=== PATIENT | male | born 1975 | race Caucasian/White ===

== ENCOUNTER 2016-12-12 16:54 | Emergency (ER) | payer OTHER ==
[~2016-12-12] VITALS: Ht 190.5 cm; Wt 104.3 kg
--- NOTE | 2016-12-12 17:19 | ED Hip Pain/Injury ---
General Chief Complaint: Hip/Pelvic Problems Stated Complaint: R HIP PAIN/LEG WEAKNESS Nursing Triage Note: AMBULATED TO ROOM 06 ET STATES HE THINK HE TORE A LIGAMENT IN HIS RIGHT HIP. STATES HE WAS PUTTING ON HIS BOOTS LAST TUESDAY AND IMMEDIATLY STARTED HAVING PAIN AND NOW IT RADIATES TO THE LEFT HIP. Source: patient Exam Limitations: no limitations History of Present Illness Time seen by provider: 17:19 Initial Comments 41-year-old male patient presents to the emergency department for complaints of low back pain radiating down the right buttock and right leg. States symptoms began when he was trying to put on his boots last Tuesday. States this current worse throughout the week. Denies numbness, weakness, bowel incontinence, bladder incontinence, or numbness of the genital area. Timing/Duration: week, getting worse Location: other (low back that radiates down the rt buttock/RLE.) Method of Injury: other (bent over to put shoes on ) Modifying Factors: Improves With Immobilization, Worse With Movement Allergies and Home Medications Allergies Coded Allergies: No Known Drug Allergies (Unverified , 12/12/16) Home Medications Cyclobenzaprine HCl 10 Mg Tablet, 10 MG PO Q8H PRN for SPASMS, #14 Ref 0 Prescribed by: SHAHEED WILLIAM on 12/12/161744 Prednisone 20 Mg Tab, 40 MG PO DAILY, #10 Ref 0 Prescribed by: SHAHEED WILLIAM on 12/12/161744 Constitutional: no symptoms reported Respiratory: no symptoms reported Cardiovascular: no symptoms reported Gastrointestinal: no symptoms reported Genitourinary: No decreased output, No dysuria, No frequency, No hematuria, No pain Musculoskeletal: see HPI, back pain, joint pain, muscle pain Skin: no symptoms reported Psychiatric/Neurological: Denies Headache, Denies Numbness, Denies Paresthesia , Denies Tingling, Denies Weakness All Other Systems Reviewed Negative Unless Noted: Yes (Negative excepted noted.) Past Uobrbjp-Ztzvok-Alulfl Hx Patient Social History Alcohol Use: Denies Use Recreational Drug Use: No Smoking Status: Current Everyday Smoker Recent Foreign Travel: No Contact w/Someone Who Travel: No Recent Infectious Disease Expo: No Recent Hopitalizations: No Surgeries HX Surgeries: No Respiratory Hx Respiratory Disorders: No Cardiovascular Hx Cardiac Disorders: No Neurological Hx Neurological Disorders: No Genitourinary Hx Genitourinary Disorders: No Gastrointestinal Hx Gastrointestinal Disorders: No Musculoskeletal Hx Musculoskeletal Disorders: No Endocrine Hx Endocrine Disorders: No HEENT HX ENT Disorders: No Reviewed Nursing Assessment Reviewed/Agree w Nursing PMH: Yes Family Medical History Significant Family History: No Pertinent Family Hx Physical Exam Vital Signs Vital Sign - Last 12Hours 12/12/16 17:06 Temp 98.0 Pulse 111 Resp 18 B/P (MAP) 193/116 Pulse Ox 96 Capillary Refill : Less Than 3 Seconds General Appearance: No Apparent Distress, WD/WN HEENT: PERRL/EOMI, Pharynx Normal Neck: Full Range of Motion, Normal Inspection, Non Tender, Supple Cardiovascular: Regular Rate, Rhythm, No Edema, No Murmur, Normal Peripheral Pulses Respiratory: Lungs Clear, Normal Breath Sounds, No Respiratory Distress Peripheral Pulses: 2+ Dorsalis Pedis (R), 2+ Left Dors-Pedis (L), 2+ Radial Pulses (R), 2+ Radial Pulses (L) Gastrointestinal: Normal Bowel Sounds, Non Tender, Soft, No Distended Back: Normal Inspection, No Vertebral Tenderness, No Decreased Range of Motion , Muscle Spasm (Rt low paraspinous muscles.) Extremity: Normal Capillary Refill, Normal Inspection, Normal Range of Motion, No Calf Tenderness, No Pedal Edema, Other (very mild soft tissue tenderness noted on the right buttock and posteriolateral rt thigh.) Neurologic/Psychiatric: Alert, Oriented x3, No Motor/Sensory Deficits, Normal Mood/Affect Skin: Normal Color, Warm/Dry Progress/Results/Core Measures Results/Orders My Orders Orders - SHAHEED WILLIAM (12/12/16 17:47) Vital Signs/I&O Vital Sign - Last 12Hours 12/12/16 17:06 Temp 98.0 Pulse 111 Resp 18 B/P (MAP) 193/116 Pulse Ox 96 Blood Pressure Mean: 141 Departure Communication Progress Notes patient seen and evaluated. patient refuses diagnostic studies and laboratory testing. denies need for pain medication. Patient states "I only came out here to get crutches, an ice pack, and a back brace or something." I discussed all risks, benefits, possible complications associated with not performing diagnostic studies and laboratory studies. All questions were answered at the time of visit. Patient voices understanding and continues to refuse diagnostic and laboratory testing. Patient states his BP is usually "normal" and states it is only up today due to the pain. Patient advised to follow-up with the PCP of his choice for establishing care and for recheck of his BP. All return precautions were discussed with the patient as described in the discharge instructions of this report. Patient voices understanding and agrees with the treatment plan. Dr. Jimenez notified of patient's refusal for laboratory and diagnostic testing. Impression Impression: Primary Impression: Low back pain with sciatica Qualified Codes: M54.41 - Lumbago with sciatica, right side Additional Impression: Elevated blood pressure reading Disposition: HOME, SELF-CARE Condition: Improved Departure-Patient Inst. Decision time for Depature: 17:43 Referrals: NO,LOCAL PHYSICIAN (PCP/Family) Primary Care Physician Patient Instructions: Low Back Pain (DC), Sciatica (DC) Add. Discharge Instructions: All discharge instructions reviewed with patient and/or family. Voiced understanding. Medications as instructed. Ice pack for 20 minute intervals as needed for pain. Ibuprofen 800 mg by mouth every 8 hours as needed for pain. Tylenol extra strength [id number] as directed for pain. No heavy lifting , pushing, pulling, twisting, bending, climbing 5-7 days, increase activity slowly as tolerated. Follow-up with your family practitioner of choice for establishing care and for recheck of your blood pressure on Tuesday. Return to the emergency department for worsened pain, numbness, weakness, bowel incontinence, bladder incontinence, numbness of the genitals, or any other concerns. Scripts Cyclobenzaprine HCl (Cyclobenzaprine HCl) 10 Mg Tablet 10 MG PO Q8H Y for SPASMS, #14 TAB 0 Refills Prov: SHAHEED WILLIAM 12/12/16 Prednisone (Prednisone) 20 Mg Tab 40 MG PO DAILY, #10 TAB 0 Refills Prov: SHAHEED WILLIAM 12/12/16 Work/School Note: [employer] SHAHEED WILLIAM December 12, 2016 17:19
[2016-12-12] MEDS ORDERED: PRD20T PO (17:45)
[2016-12-12] MEDS ORDERED: CYCL10TA9 PO (17:45)
[2016-12-12 18:02] VITALS: BP 190/125
== END 2016-12-12 18:02 | disposition home or self-care (01) ==
LOC: ER 16:57
DX: M54.41 Lumbago with sciatica, right side (principal); R03.0 Elevated blood-pressure reading, without diagnosis of hypertension; F17.210 Nicotine dependence, cigarettes, uncomplicated
CPT/HCPCS: 99282

== ENCOUNTER 2017-05-30 16:45 | Emergency (ER) | payer OTHER ==
[~2017-05-30] VITALS: Ht 188 cm; Wt 106.6 kg
[~2017-05-30 16:45] MED LIST: CYCL10TA9 PO; PRD20T PO
[2017-05-30 17:17] VITALS: BP 204/119
[2017-05-30 17:43] LABS: BASOPHILS % (AUTO) 0 % (0-10); EOSINOPHILS # (AUTO) 0.4 10^3/uL (0.0-0.3); EOSINOPHILS % (AUTO) 4 % (0-10); LYMPHOCYTES # (AUTO) 2.8 X 10^3 (1.0-4.0); LYMPHOCYTES % (AUTO) 30 % (12-44); MEAN CORPUSCULAR HEMOGLOBIN 31 PG (25-34); MEAN CORPUSCULAR HGB CONC 36 G/DL (32-36); MEAN CORPUSCULAR VOLUME 86 FL (80-99); MEAN PLATELET VOLUME 9.5 FL (7.4-10.4); MONOCYTES # (AUTO) 0.6 X 10^3 (0.0-1.0); MONOCYTES % (AUTO) 7 % (0-12); NEUTROPHILS # (AUTO) 5.5 X 10^3 (1.8-7.8); NEUTROPHILS % (AUTO) 59 % (42-75); PLATELET COUNT 195 10^3/uL (130-400); RED BLOOD COUNT 5.24 10^6/uL (4.35-5.85); RED CELL DISTRIBUTION WIDTH 12.4 % (10.0-14.5); WHITE BLOOD COUNT 9.2 10^3/uL (4.3-11.0)
--- NOTE | 2017-05-30 17:50 | ED Psychosocial ---
General Chief Complaint: Cardiac/General Problems Stated Complaint: BLURRY VISION,HEADACHE,LT ARM NUMBNESS Nursing Triage Note: pt presents to ED with complaints of RAMIREZ, blurred vision, Lt arm numbness. Pt also reports he thinks he is being sedated at night and people are messing with him. Pt reports some one may have put snake venom in his coke can. Pt also reports he thinks it is possible that he is getting an electroshock at work through a defibulator. Source: patient Exam Limitations: no limitations History of Present Illness Time seen by provider: 17:45 Initial Comments 41-year-old male patient presents to the emergency department with complaints of headache, blurred vision, and left arm numbness beginning last Tuesday area patient states today the headache and blurred vision are improved. Patient is concerned that he is being sedated at nighttime and that someone is putting snake venom in his code can. Patient states he "passed out" in his recliner on Tuesday and when he awoke he noticed his straw had raised up in the can and was swirling. Patient then felt very suspicious that someone was messing with him. Patient states his sister was born with a paralyzed arm and would not be surprised if she was messing with him. Also states while at work there are defibrillators on the mari and he thinks someone is causing the defibrillators to shock him. He feels a "pulsing" in the left arm from the defibrillators. On Tuesday he was having difficulty opening zippers and raising the left arm above shoulder height. Patient denies suicidal or homicidal ideation. Denies personal history of suicide attempts. Patient does report a history of migraines. Only drinks caffeinated pop. Denies changes in appetite. Patient was seen by this examiner in November 2016 for back pain and was noted at that time to have a BP of 193/116 mmHg. Denies seeing a PCP for the elevated BP. Patient denies a h/o psychiatric diagnosis. He does report while he lived in [place] (approximately 6 years ago) he also thought someone was putting staff and his coke cans. Patient does have a history of drug abuse, but states he has not used for a long time. Timing/Duration: intermittent, other (onset 05/25/2017) Associated Symptoms: anxiety, impaired concentration, insomnia, other (see HPI. ) Allergies and Home Medications Allergies Coded Allergies: No Known Drug Allergies (Unverified , 12/12/16) Home Medications No Active Prescriptions or Reported Meds Constitutional: No chills, No diaphoresis, No dizziness, No fever, malaise, weakness (generalized weakness), other (fatigue) EENTM: blurred vision, dental problems (patient states he has "chronic bad teeth" and thinks may be contributing to the headaches and blurred vision.), other (dry mouth.), No ear discharge, No hearing loss, No ear pain, No double vision, No hoarseness, No mouth pain, No nose pain, No throat pain, No throat swelling Respiratory: No cough, No short of breath Cardiovascular: No chest pain, No edema, No palpitations, No syncope Gastrointestinal: No abdominal pain, No constipation, No diarrhea, No nausea, No vomiting Genitourinary: no symptoms reported Musculoskeletal: see HPI Skin: other ("bug bite" under the left breast that has been intermittent for approx 2 months.) Psychiatric/Neurological: See HPI, Anxiety, Headache, Numbness (left arm), Denies Seizure, Tingling (left arm), Weakness (left arm weakness) All Other Systems Reviewed Negative Unless Noted: Yes (Negative excepted noted.) Past Mehladq-Inviit-Cskmyk Hx Patient Social History Alcohol Use: Occasionally Uses Smoking Status: Current Everyday Smoker Type Used: Cigarettes Recent Foreign Travel: No Contact w/Someone Who Travel: No Recent Infectious Disease Expo: No Recent Hopitalizations: No Physical Abuse: No Sexual Abuse: No Mistreated: No Fear: No Surgeries History of Surgeries: No Respiratory History of Respiratory Disorde: No Cardiovascular History of Cardiac Disorders: Yes Cardiac Disorders: Hypertension Neurological History of Neurological Disord: No Genitourinary History of Genitourinary Disor: No Gastrointestinal History of Gastrointestinal Di: No Musculoskeletal History of Musculoskeletal Dis: No Endocrine History of Endocrine Disorders: No HEENT History of HEENT Disorders: No Cancer History of Cancer: No Psychosocial History of Psychiatric Problem: Yes (psych hx) Suicide Risk Score: 0 Integumentary History of Skin or Integumenta: No Blood Transfusions History of Blood Disorders: No Adverse Reaction to a Blood Tr: No Reviewed Nursing Assessment Reviewed/Agree w Nursing PMH: Yes Family Medical History Significant Family History: No Pertinent Family Hx Physical Exam Vital Signs Vital Sign - Last 12Hours 05/30/17 17:17 Temp 98.5 Pulse 119 Resp 20 B/P (MAP) 204/119 Pulse Ox 99 Capillary Refill : Less Than 3 Seconds Progress/Results/Core Measures Results/Orders Lab Results Laboratory Tests Test 05/30/17 17:35 05/30/17 21:01 Range/Units White Blood Count 9.2 4.3-11.0 10^3/uL Red Blood Count 5.24 4.35-5.85 10^6/uL Hemoglobin 16.3 13.3-17.7 G/DL Hematocrit 45 40-54 % Mean Corpuscular Volume 86 80-99 FL Mean Corpuscular Hemoglobin 31 25-34 PG Mean Corpuscular Hemoglobin Concent 36 32-36 G/DL Red Cell Distribution Width 12.4 10.0-14.5 % Platelet Count 195 130-400 10^3/uL Mean Platelet Volume 9.5 7.4-10.4 FL Neutrophils (%) (Auto) 59 42-75 % Lymphocytes (%) (Auto) 30 12-44 % Monocytes (%) (Auto) 7 0-12 % Eosinophils (%) (Auto) 4 0-10 % Basophils (%) (Auto) 0 0-10 % Neutrophils # (Auto) 5.5 1.8-7.8 X 10^3 Lymphocytes # (Auto) 2.8 1.0-4.0 X 10^3 Monocytes # (Auto) 0.6 0.0-1.0 X 10^3 Eosinophils # (Auto) 0.4 H 0.0-0.3 10^3/uL Basophils # (Auto) 0.0 0.0-0.1 10^3/uL Sodium Level 135 135-145 MMOL/L Potassium Level 3.8 3.6-5.0 MMOL/L Chloride Level 101 98-107 MMOL/L Carbon Dioxide Level 22 21-32 MMOL/L Anion Gap 12 5-14 MMOL/L Blood Urea Nitrogen 10 7-18 MG/DL Creatinine 0.99 0.60-1.30 MG/DL Estimat Glomerular Filtration Rate > 60 BUN/Creatinine Ratio 10 Glucose Level 190 H 70-105 MG/DL Calcium Level 9.7 8.5-10.1 MG/DL Magnesium Level 1.8 1.8-2.4 MG/DL Total Bilirubin 0.5 0.1-1.0 MG/DL Aspartate Amino Transf (AST/SGOT) 25 5-34 U/L Alanine Aminotransferase (ALT/SGPT) 37 0-55 U/L Alkaline Phosphatase 119 40-136 U/L Total Creatine Kinase 204 H 30-200 U/L Creatine Kinase MB 3.7 <6.6 NG/ML Troponin I < 0.30 <0.30 NG/ML Total Protein 8.0 6.4-8.2 GM/DL Albumin 4.3 3.2-4.5 GM/DL TSH Tracy Testing 1.83 0.35-4.94 UIU/ML Salicylates Level < 5.0 L 5.0-20.0 MG/DL Acetaminophen Level < 10 L 10-30 UG/ML Serum Alcohol < 10 <10 MG/DL Urine Color YELLOW Urine Clarity CLEAR Urine pH 5 5-9 Urine Specific [place] 1.020 1.016-1.022 Urine Protein NEGATIVE NEGATIVE Urine Glucose (UA) 1+ H NEGATIVE Urine Ketones NEGATIVE NEGATIVE Urine Nitrite NEGATIVE NEGATIVE Urine Bilirubin NEGATIVE NEGATIVE Urine Urobilinogen NORMAL NORMAL MG/DL Urine Leukocyte Esterase NEGATIVE NEGATIVE Urine RBC (Auto) NEGATIVE NEGATIVE Urine RBC NONE /HPF Urine WBC RARE /HPF Urine Squamous Epithelial Cells RARE /HPF Urine Crystals NONE /LPF Urine Bacteria NONE /HPF Urine Casts NONE /LPF Urine Mucus TRACE /LPF Urine Culture Indicated NO Urine Opiates Screen NEGATIVE NEGATIVE Urine Oxycodone Screen NEGATIVE NEGATIVE Urine Methadone Screen NEGATIVE NEGATIVE Urine Propoxyphene Screen NEGATIVE NEGATIVE Urine Barbiturates Screen NEGATIVE NEGATIVE Ur Tricyclic Antidepressants Screen NEGATIVE NEGATIVE Urine Phencyclidine Screen NEGATIVE NEGATIVE Urine Amphetamines Screen NEGATIVE NEGATIVE Urine Methamphetamines Screen NEGATIVE NEGATIVE Urine Benzodiazepines Screen NEGATIVE NEGATIVE Urine Cocaine Screen NEGATIVE NEGATIVE Urine Cannabinoids Screen NEGATIVE NEGATIVE My Orders Orders - SHAHEED WILLIAM Saline Lock/Iv-Start (05/30/17 17:30) Ekg Tracing (05/30/17 17:30) Cbc With Automated Diff (05/30/17 17:30) Comprehensive Metabolic Panel (05/30/17 17:30) Creatine Kinase (05/30/17 17:30) Creatine Kinase Mb (05/30/17 17:30) Drug Screen Stat (Urine) (05/30/17 17:30) Magnesium (05/30/17 17:30) Thyroid Analyzer (05/30/17 17:30) Troponin I (05/30/17 17:30) Ua Culture If Indicated (05/30/17 17:30) Alcohol (05/30/17 17:33) Acetaminophen (05/30/17 17:33) Salicylate (05/30/17 17:33) Monitor-Rhythm Ecg Trace Only (05/30/17 17:33) Ct Head Wo (05/30/17 18:03) Ns Iv 1000 Ml (Sodium Chloride 0.9%) (05/30/17 18:28) Medications Given in ED Current Medications Medications Dose Ordered Sig/Jimmy Route Start Time Stop Time Status Last Admin Dose Admin Sodium Chloride 1,000 ml @ 0 mls/hr Q0M ONCE IV 05/30/17 18:28 05/30/17 18:29 DC 05/30/17 18:55 0 MLS/HR Vital Signs/I&O Vital Sign - Last 12Hours 05/30/17 17:17 Temp 98.5 Pulse 119 Resp 20 B/P (MAP) 204/119 Pulse Ox 99 Blood Pressure Mean: 147 ECG Initial ECG Impression Date: May 30, 2017 Initial ECG Impression Time: 17:50 Initial ECG Rate: 95 Initial ECG Rhythm: Normal Sinus Initial ECG Intervals: Normal Initial ECG Impression: Normal Initial ECG Comparisson: No Previous ECG Available Comment sinus rhythm. no STEMI or arrhythmia. ECG reviewed with Dr. Jimenez. Diagnostic Imaging Diagonstic Imaging: CT Plain Films/CT/US/NM/MRI: head Comments CT HEAD WO PROCEDURE: CT head without contrast. TECHNIQUE: Multiple contiguous axial images were obtained through the brain without the use of intravenous contrast. INDICATION: Blurred vision and headache. CORRELATION STUDY: None. FINDINGS: There is very slight asymmetry of the right lateral ventricle, slightly larger than the left, likely normal variation. No midline shift or mass effect. Sulci pattern relatively unremarkable. There is very slight asymmetric low density about the right posterosuperior hemisphere. This likely reflects a prominent central fissure. Edema would be considered less likely but not excluded. Otherwise, brain parenchyma appearing unremarkable. No intracranial hemorrhage. Basilar cisterns are maintained. No hyperdense MCA sign. Visualized paranasal sinuses and mastoid air cells are relatively clear with the mastoid air cells somewhat hypoplastic. IMPRESSION: 1. Very questionable low density about the right superior cerebral hemisphere likely reflective of volume averaging through prominent sulci. Edema considered less likely. However, given symptoms, if further assessment is desired, MRI would be recommended. Dictated on workstation # [id number] Reviewed: Reviewed by Me (radiology report reviewed by me) Departure Communication (Admissions) Progress Notes 1947 BP 165/99; P 104; SaO2 98% on RA. Patient reports he is feeling less anxious after talking about everything. Patient states he was seen in November by Dr. Graham. Tried to make an appointment with her today, but was told to come to the ED for work-up. Impression Impression: Primary Impression: Headache Additional Impression: Hypertension Disposition: HOME, SELF-CARE Condition: Improved Departure-Patient Inst. Referrals: WU GRAHAM MD NO,LOCAL PHYSICIAN (PCP) Primary Care Physician Patient Instructions: Cluster Headache (DC), High Blood Pressure (DC) Add. Discharge Instructions: All discharge instructions reviewed with patient and/or family. Voiced understanding. Tylenol extra strength [id number] as directed for headache or pain. Ibuprofen 800 mg by mouth every 8 hours as needed for pain or headache. Drink plenty of fluids. Rest. Monitor blood pressures 1-2 times daily. Record all readings take the list with you to the follow-up appointment with Dr. Graham. Follow-up with Dr. Graham in the next 1-2 days for recheck and for scheduling outpatient MRI of the brain. Call tomorrow morning for appointment time. Return immediately to the emergency department for worsened pain, dizziness, changes in vision, slurred speech, weakness, numbness, fever, shortness of air, chest pain, bowel incontinence, bladder incontinence, hallucinations, delusions, thoughts of harming yourself, thoughts of harming others, decreased urination, or any other concerns. Scripts No Active Prescriptions or Reported Meds SHAHEED WILLIAM May 30, 2017 17:50
[2017-05-30 18:05] LABS: ALANINE AMINOTRANSFERASE 37 U/L (0-55); ALBUMIN 4.3 GM/DL (3.2-4.5); ALCOHOL < 10 MG/DL (<10); ANION GAP 12 MMOL/L (5-14); ASPARTATE AMINO TRANSFERASE 25 U/L (5-34); BILIRUBIN,TOTAL 0.5 MG/DL (0.1-1.0); BLOOD UREA NITROGEN 10 MG/DL (7-18); BUN/CREATININE RATIO 10; CALCIUM 9.7 MG/DL (8.5-10.1); CARBON DIOXIDE 22 MMOL/L (21-32); CHLORIDE 101 MMOL/L (98-107); CREATINE KINASE 204 U/L (30-200); CREATININE SERUM 0.99 MG/DL (0.60-1.30); GFR ESTIMATED > 60; GLUCOSE 190 MG/DL (70-105); MAGNESIUM 1.8 MG/DL (1.8-2.4); POTASSIUM 3.8 MMOL/L (3.6-5.0); SALICYLATE < 5.0 MG/DL (5.0-20.0); SODIUM 135 MMOL/L (135-145)
[2017-05-30 18:06] LABS: ACETAMINOPHEN < 10 UG/ML (10-30)
[2017-05-30 18:24] LABS: TROPONIN I < 0.30 NG/ML (<0.30)
[2017-05-30] MEDS ORDERED: NS IV 1000 ML 1,000 ML IV ONE (18:28)
--- NOTE | 2017-05-30 18:33 | Diagnostic Imaging Report ---
PROCEDURE: CT head without contrast. TECHNIQUE: Multiple contiguous axial images were obtained through the brain without the use of intravenous contrast. INDICATION: Blurred vision and headache. CORRELATION STUDY: None. FINDINGS: There is very slight asymmetry of the right lateral ventricle, slightly larger than the left, likely normal variation. No midline shift or mass effect. Sulci pattern relatively unremarkable. There is very slight asymmetric low density about the right posterosuperior hemisphere. This likely reflects a prominent central fissure. Edema would be considered less likely but not excluded. Otherwise, brain parenchyma appearing unremarkable. No intracranial hemorrhage. Basilar cisterns are maintained. No hyperdense MCA sign. Visualized paranasal sinuses and mastoid air cells are relatively clear with the mastoid air cells somewhat hypoplastic. IMPRESSION: 1. Very questionable low density about the right superior cerebral hemisphere likely reflective of volume averaging through prominent sulci. Edema considered less likely. However, given symptoms, if further assessment is desired, MRI would be recommended. Dictated by: Dictated on workstation # [id number]
[2017-05-30 21:09] LABS: BILIRUBIN,URINE NEGATIVE (NEGATIVE); KETONES,URINE NEGATIVE (NEGATIVE); LEUKOCYTE ESTERASE ,URINE NEGATIVE (NEGATIVE); NITRITE,URINE NEGATIVE (NEGATIVE); PH,URINE 5 (5-9); PROTEIN,URINE NEGATIVE (NEGATIVE); UROBILINOGEN,URINE NORMAL (NORMAL)
[2017-05-30 21:20] LABS: SQUAMOUS EPITHELIAL CELL,UR RARE /HPF; WBC,URINE RARE /HPF
[2017-05-30] MEDS ORDERED: ACETAMINOPHEN 500 MG TAB (TYLENOL) PO ONE (22:30)
== END 2017-05-30 22:22 | disposition left against medical advice (07) ==
LOC: EDUNIT# 16:45 → ER 16:47
DX: R51 Headache (principal); I10 Essential (primary) hypertension; F17.210 Nicotine dependence, cigarettes, uncomplicated
CPT/HCPCS: 36415; 70450; 80053; 80306; 80320; 80329; 81000; 82550; 82553; 83735; 84443; 84484; 85025; 93005; 93041

== ENCOUNTER 2017-05-31 20:24 | Emergency (ER) | payer OTHER ==
[~2017-05-31] VITALS: Ht 188 cm; Wt 108.9 kg
--- NOTE | 2017-05-31 20:34 | ED General ---
General Chief Complaint: General Problems/Pain Stated Complaint: SEIZURES Source of Information: Patient Exam Limitations: No Limitations History of Present Illness Time Seen by Provider: 20:31 Initial Comments To ER per EMS from home with reports of bilateral leg cramps. He was here yesterday for left arm numbness and a headache. He had a CT of the head done without contrast. He also had extensive lab work done yesterday in the emergency room. Today, EMS was called to his house twice. Earlier today for cramping in the right calf and foot. He also had some numbness of the right calf and foot. He initially refused transport. EMS was called back to his house this evening for left sided leg cramping. His symptoms have completely resolved at this time though he does have some persistent left arm numbness began 05/28/17. He states this has improved but from an objective standpoint it is still quite apparent. He denies fevers or chills. He denies back pain. He denies loss of bowel or bladder control. Denies saddle anesthesia. Reports seizure like activity at home with "whole body shaking". Timing/Duration: 1-2 Days Severity: Moderate Allergies and Home Medications Allergies Coded Allergies: No Known Drug Allergies (Unverified , 12/12/16) Home Medications No Active Prescriptions or Reported Meds Constitutional: see HPI EENTM: see HPI Respiratory: no symptoms reported Cardiovascular: no symptoms reported Genitourinary: no symptoms reported Musculoskeletal: no symptoms reported Skin: no symptoms reported Psychiatric/Neurological: See HPI, Paresthesia Hematologic/Lymphatic: No Symptoms Reported Past Madxgjs-Nhjjrb-Rnadjf Hx Patient Social History Type Used: Cigarettes Recent Hopitalizations: No Surgeries History of Surgeries: No Respiratory History of Respiratory Disorde: No Cardiovascular History of Cardiac Disorders: Yes Cardiac Disorders: Hypertension Neurological History of Neurological Disord: No Genitourinary History of Genitourinary Disor: No Gastrointestinal History of Gastrointestinal Di: No Musculoskeletal History of Musculoskeletal Dis: No Endocrine History of Endocrine Disorders: No HEENT History of HEENT Disorders: No Cancer History of Cancer: No Psychosocial History of Psychiatric Problem: Yes (psych hx) Integumentary History of Skin or Integumenta: No Blood Transfusions History of Blood Disorders: No Adverse Reaction to a Blood Tr: No Family Medical History Significant Family History: No Pertinent Family Hx Physical Exam Vital Signs Vital Sign - Last 12Hours 05/31/17 20:27 Temp 97.4 Pulse 119 Resp 16 B/P (MAP) 163/109 Capillary Refill : General Appearance: No Apparent Distress, WD/WN Eyes: Bilateral Eye Normal Inspection, Bilateral Eye PERRL, Bilateral Eye EOMI HEENT: PERRL/EOMI, TMs Normal Neck: Full Range of Motion, Normal Inspection Respiratory: No Accessory Muscle Use, No Respiratory Distress Cardiovascular: Regular Rate, Rhythm, Normal Peripheral Pulses Gastrointestinal: Non Tender, Soft Extremity: Normal Capillary Refill, Normal Inspection Neurologic/Psychiatric: Alert, Oriented x3, Other (he does have some ataxia of the left arm. Left leg is slightly weaker 4 out of 5 strength as compared to the right side 5 out of 5 strength. Sensation is normal. There is some drift of the left arm and significant ataxia. There is no sensation loss.) Skin: Normal Color, Warm/Dry Comments Patient gets an NIH stroke scale of a 4. He gets 1 point for left leg drift, 2 points for left arm drift, 1 point for ataxia in 1 limb which would be the left arm. All other aspects of the NIH stroke scale are negative. Progress/Results/Core Measures Results/Orders Lab Results Laboratory Tests Test 05/31/17 20:50 05/31/17 21:11 05/31/17 23:19 Range/Units White Blood Count 10.7 4.3-11.0 10^3/uL Red Blood Count 4.88 4.35-5.85 10^6/uL Hemoglobin 15.2 13.3-17.7 G/DL Hematocrit 42 40-54 % Mean Corpuscular Volume 86 80-99 FL Mean Corpuscular Hemoglobin 31 25-34 PG Mean Corpuscular Hemoglobin Concent 36 32-36 G/DL Red Cell Distribution Width 12.5 10.0-14.5 % Platelet Count 191 130-400 10^3/uL Mean Platelet Volume 9.6 7.4-10.4 FL Neutrophils (%) (Auto) 62 42-75 % Lymphocytes (%) (Auto) 29 12-44 % Monocytes (%) (Auto) 6 0-12 % Eosinophils (%) (Auto) 3 0-10 % Basophils (%) (Auto) 1 0-10 % Neutrophils # (Auto) 6.6 1.8-7.8 X 10^3 Lymphocytes # (Auto) 3.1 1.0-4.0 X 10^3 Monocytes # (Auto) 0.6 0.0-1.0 X 10^3 Eosinophils # (Auto) 0.4 H 0.0-0.3 10^3/uL Basophils # (Auto) 0.1 0.0-0.1 10^3/uL Sodium Level 137 135-145 MMOL/L Potassium Level 3.7 3.6-5.0 MMOL/L Chloride Level 102 98-107 MMOL/L Carbon Dioxide Level 20 L 21-32 MMOL/L Anion Gap 15 H 5-14 MMOL/L Blood Urea Nitrogen 13 7-18 MG/DL Creatinine 1.05 0.60-1.30 MG/DL Estimat Glomerular Filtration Rate > 60 BUN/Creatinine Ratio 12 Glucose Level 202 H 70-105 MG/DL Calcium Level 9.7 8.5-10.1 MG/DL Total Bilirubin 0.4 0.1-1.0 MG/DL Aspartate Amino Transf (AST/SGOT) 27 5-34 U/L Alanine Aminotransferase (ALT/SGPT) 33 0-55 U/L Alkaline Phosphatase 111 40-136 U/L Total Protein 7.3 6.4-8.2 GM/DL Albumin 3.9 3.2-4.5 GM/DL Glucometer 182 H 70-110 MG/DL My Orders Orders - MARIAMA ELIZONDO APRN Ekg Tracing (05/31/17 20:36) Saline Lock/Iv-Start (05/31/17 20:36) Metoprolol Tartrate (Ir) Tab (Lopressor (05/31/17 20:45) Iohexol Injection (Omnipaque 350 Mg/Ml 1 (05/31/17 20:45) Ns (Ivpb) (Sodium Chloride 0.9% Ivpb Bag (05/31/17 20:45) Ct Angio Head/Neck (05/31/17 20:42) Cbc With Automated Diff (05/31/17 20:48) Comprehensive Metabolic Panel (05/31/17 20:48) Ua Culture If Indicated (05/31/17 20:48) Lorazepam Injection (Ativan Injection) (05/31/17 20:56) Ns Iv 1000 Ml (Sodium Chloride 0.9%) (05/31/17 20:57) Drug Screen Stat (Urine) (05/31/17 21:15) Levetiracetam Injection (Keppra Injectio (06/01/17 09:00) Aspirin Chewable Tablet (Baby Aspirin Ch (05/31/17 23:15) Clopidogrel Tablet (Plavix Tablet) (05/31/17 23:15) Accucheck Stat ONCE (05/31/17 23:11) Medications Given in ED Current Medications Medications Dose Ordered Sig/Jimmy Route Start Time Stop Time Status Last Admin Dose Admin Lorazepam 2 mg STK-MED ONCE .ROUTE 05/31/17 20:56 05/31/17 21:05 DC 05/31/17 21:08 2 MG Metoprolol Tartrate 25 mg ONCE ONCE PO 05/31/17 20:45 05/31/17 20:46 DC 05/31/17 21:20 25 MG Sodium Chloride 1,000 ml @ ud STK-MED ONCE .ROUTE 05/31/17 20:57 05/31/17 21:06 DC 05/31/17 21:16 1,000 MLS/HR Vital Signs/I&O Vital Sign - Last 12Hours 05/31/17 20:27 Temp 97.4 Pulse 119 Resp 16 B/P (MAP) 163/109 Progress Note : Progress Note [id number]- was called to the patient's room by him screaming for help. Upon entering the room heart rate was 182 sinus tach on the cardiac cath tech, tachypnea, patient was diaphoretic and shaking his entire body. This did appear to be seizure-like activity though he was with his eyes open and attempting to talk to us. He states this began as an electric shock sensation of his right leg. This lasted for about 1 minute before stopping. He was given 1 mg of Ativan IV during this seizure like activity. after this ended, patient states that he is been hearing people at his apartment talking. Upon further conversation he states that he's heard him talking as if they are in the same room as him that he cannot see anyone. He states it sound like his little sister's voice. He does not believe that he is hallucinating. He states that he has heard people talking that he cannot see in other situations outside of his house as well for some time. He states sometimes he hears them as "vibrations". Departure Communication (Admissions) Progress Notes 1922- stat read radiologist called to report findings consistent with subacute ischemic stroke. There is a nonocclusive soft plaque extending from the right carotid bulb to the proximal internal carotid artery measuring about 3.8 cm in length. There is a curvilinear hypodensity in the region of the right parietal lobe indicating an acute or subacute infarct and a questionable nonocclusive thrombus in the cavernous portion of the right internal carotid artery. 7031-Dr Cox recommends transfer to for possible right Carotid endarterectomy. Recommends Aspirin/plavix in the meantime. I will give keppra 1000mg IV for seizure prophylaxis given his seizure like activity here. [facility] may continue or dc this per neurology's recommendations. Impression Impression: Primary Impression: left sided motor weakness Additional Impressions: left-sided ataxia Hypertension Observed seizure-like activity Right hemisphere, cerebral infarction Disposition: [facility]-TRM HOSP Condition: Stable Departure-Patient Inst. Decision time for Depature: 20:34 Referrals: NO,LOCAL PHYSICIAN (PCP/Family) Primary Care Physician Patient Instructions: Nocturnal (Nighttime) Leg Cramps Scripts No Active Prescriptions or Reported Meds MARIAMA ELIZONDO APRN May 31, 2017 20:34
[2017-05-31] MEDS ORDERED: NS 100 ML (IVPB) BAG IV ONE (20:45)
[2017-05-31] MEDS ORDERED: meTOprolol TARTRATE 25 MG (LOPRESSOR) TABLET PO ONE (20:45)
[2017-05-31] MEDS ORDERED: IOHEXOL 350 MG/ML 100 ML (OMNIPAQUE 350) VIAL IV ONE (20:45)
[2017-05-31] MEDS ORDERED: NS IV 1000 ML 1,000 ML ONE (20:57)
[2017-05-31 21:04] LABS: BASOPHILS # (AUTO) 0.1 10^3/uL (0.0-0.1); BASOPHILS % (AUTO) 1 % (0-10); EOSINOPHILS # (AUTO) 0.4 10^3/uL (0.0-0.3); EOSINOPHILS % (AUTO) 3 % (0-10); LYMPHOCYTES # (AUTO) 3.1 X 10^3 (1.0-4.0); LYMPHOCYTES % (AUTO) 29 % (12-44); MEAN CORPUSCULAR HEMOGLOBIN 31 PG (25-34); MEAN CORPUSCULAR HGB CONC 36 G/DL (32-36); MEAN CORPUSCULAR VOLUME 86 FL (80-99); MEAN PLATELET VOLUME 9.6 FL (7.4-10.4); MONOCYTES # (AUTO) 0.6 X 10^3 (0.0-1.0); MONOCYTES % (AUTO) 6 % (0-12); NEUTROPHILS # (AUTO) 6.6 X 10^3 (1.8-7.8); NEUTROPHILS % (AUTO) 62 % (42-75); PLATELET COUNT 191 10^3/uL (130-400); RED BLOOD COUNT 4.88 10^6/uL (4.35-5.85); RED CELL DISTRIBUTION WIDTH 12.5 % (10.0-14.5); WHITE BLOOD COUNT 10.7 10^3/uL (4.3-11.0)
[2017-05-31] MEDS: LORazepam INJ 2 MG/ML (ATIVAN) VIAL ONE (21:08)
[2017-05-31 21:13] LABS: ALANINE AMINOTRANSFERASE 33 U/L (0-55); ALBUMIN 3.9 GM/DL (3.2-4.5); ANION GAP 15 MMOL/L (5-14); ASPARTATE AMINO TRANSFERASE 27 U/L (5-34); BILIRUBIN,TOTAL 0.4 MG/DL (0.1-1.0); BLOOD UREA NITROGEN 13 MG/DL (7-18); BUN/CREATININE RATIO 12; CALCIUM 9.7 MG/DL (8.5-10.1); CARBON DIOXIDE 20 MMOL/L (21-32); CHLORIDE 102 MMOL/L (98-107); CREATININE SERUM 1.05 MG/DL (0.60-1.30); GFR ESTIMATED > 60; GLUCOSE 202 MG/DL (70-105); POTASSIUM 3.7 MMOL/L (3.6-5.0); SODIUM 137 MMOL/L (135-145); TOTAL PROTEIN 7.3 GM/DL (6.4-8.2)
[2017-05-31] MEDS ORDERED: ASPIRIN 81 MG CHEW (CHILDREN'S ASA) PO ONE (23:15)
[2017-05-31] MEDS ORDERED: CLOPIDOGREL 75 MG (PLAVIX) TABLET PO ONE (23:15)
[2017-05-31] MEDS ORDERED: NS (IVPB) 100 ML ONE (23:15)
[2017-05-31] MEDS ORDERED: LEVETIRACETAM 500 MG/5 ML (KEPPRA) VIAL IV ONE (23:15)
[2017-05-31 23:26] LABS: BILIRUBIN,URINE NEGATIVE (NEGATIVE); KETONES,URINE NEGATIVE (NEGATIVE); LEUKOCYTE ESTERASE ,URINE NEGATIVE (NEGATIVE); NITRITE,URINE NEGATIVE (NEGATIVE); PH,URINE 6 (5-9); PROTEIN,URINE 1+ (NEGATIVE); UROBILINOGEN,URINE NORMAL (NORMAL)
[2017-05-31 23:40] LABS: SQUAMOUS EPITHELIAL CELL,UR RARE /HPF
[2017-05-31 23:55] VITALS: BP 149/92
--- NOTE | 2017-06-01 08:52 | Diagnostic Imaging Report ---
PROCEDURE: CT angiography of the head and CT angiography of the neck with and without contrast. TECHNIQUE: Contiguous noncontrast images were obtained from the skull base through the vertex. After intravenous contrast administration, helical CT angiography of the neck was performed. Source data was reformatted into multiple MIP projections. Delayed post contrast acquisition was also obtained. INDICATION: Right arm weakness and right leg pain and abnormal movement. 100 mL of Omnipaque 350 is administered intravenously. Findings: CTA head: There is moderate opacification of the intracranial arteries. There is a small filling defect seen in the right cavernous segment of the internal carotid artery raising question of a nonocclusive thrombus. Otherwise the internal carotid arteries, the MCA and HOWARD arteries bilaterally are patent. The intracranial portions of the vertebral arteries and the basilar artery appear patent. The posterior cerebral arteries are patent. The unenhanced phase demonstrate no intracranial hemorrhage. There is a right parietal hypodense lesion seen with peripheral minimal hyperemia likely related to an acute infarct along the posterior distribution of the right ICA. There is no enhancing mass. No hydrocephalus. No extra-axial fluid collection is seen. CTA neck: The aortic arch is normal in caliber and is opacified with the origin of the great vessels appears to be patent. Significant artifacts from the shoulders are seen. The right common carotid artery is patent. The most distal aspect of the common carotid artery posteriorly and origin of the internal carotid artery demonstrate a soft plaque posteriorly. There is suggestion of a superimposed nonocclusive thrombosis extending more cephalad from the plaque into the proximal to mid aspect of the right internal carotid artery over a length of slightly more than 3 cm. The mid and distal segments of the right internal carotid artery appear unremarkable. The right external carotid artery is patent. The left common carotid artery, and internal and external carotid arteries on the left side appear to be patent. The degree of opacification of the vertebral arteries is relatively poor and do not allow good evaluation. The distal parts are slightly better seen and demonstrate patency. The proximal and mid segments of the vertebral arteries cannot be evaluated on this exam. The soft tissue findings in the neck demonstrate no soft tissue mass or significant lymphadenopathy. IMPRESSION: CTA neck: There is a soft plaque along the posterior aspect of the common carotid artery extending to the proximal internal carotid artery with suspected superimposed nonocclusive thrombus within the proximal aspect of the cervical segment of the right ICA. CTA head: Filling defect in the cavernous segment of the right ICA is concerning for a nonocclusive thrombus. This reading agrees with the [facility] report. Dictated by: Dictated on workstation # [id number]
[2017-06-01] MEDS ORDERED: LEVETIRACETAM INJECTION 1,000 MG in NS (IVPB) 100 ML IV SCH (09:00)
== END 2017-05-31 23:55 | disposition short-term general hospital (02) ==
LOC: EDUNIT# 20:24 → ER 20:26
DX: I63.8 Other cerebral infarction (principal); I10 Essential (primary) hypertension
CPT/HCPCS: 36415; 70496; 70498; 80053; 80306; 81000; 82962; 85025; 93005